=== PATIENT | male | born 1965 | race African-American/Black ===

== ENCOUNTER 2016-09-25 20:50 | Emergency (ER) | payer BC ==
[~2016-09-25] VITALS: Ht 188 cm; Wt 90.7 kg
[~2016-09-25 20:50] MED LIST: AMITRIPTYLINE H25 M2 PO; IBUPROFEN 800800 M1 PO; MEDROL4 MG PO; NEURONTIN 300300 M1 PO; NO HOME MEDS; NORCO 5-325 TA1 EACH PO; PERCOCET 5-3251 EACH PO; VALIUM5 MG PO
[2016-09-25 22:16] LABS: URINE BILIRUBIN 1+ (Negative); URINE BLOOD NEGATIVE (Negative); URINE COLOR YELLOW; URINE GLUCOSE-RANDOM* NEGATIVE (Negative); URINE KETONES TRACE (Negative); URINE LEUKOCYTES-REFLEX NEGATIVE (Negative); URINE PROTEIN (DIPSTICK) TRACE (Negative); URINE SPECIFIC GRAVITY 1.025 (1.003-1.035)
[2016-09-25 22:21] LABS: ICTOTEST (BILI CONFIRMATORY) Positive (Negative)
[2016-09-25] MEDS ORDERED: ULTRAM 50MG TAB50 MG PO (23:20)
[2016-09-25] MEDS ORDERED: VALIUM5 MG PO (23:20)
== END 2016-09-25 23:36 | disposition home or self-care (01) ==
LOC: ER 20:50
PROVIDERS: Emergency Medicine
DX: M54.6 Pain in thoracic spine (principal); Z91.041 Radiographic dye allergy status

== ENCOUNTER 2017-07-29 22:47 | Emergency (ER) | payer BC ==
[~2017-07-29] VITALS: Ht 188 cm; Wt 91.2 kg
--- NOTE | ~2017-07-29 | EKG ---
[address] [address] [place] [address] ELECTROCARDIOGRAM REPORT Name: HILARIOBIJAN Kaylyn Room #: [id number] Admission: 07/29/17 Attend Phys: Discharge: 07/30/17 Date of : 65 Report #: [id number] THIS REPORT FOR: //name// [facility] ED Test Date: 2017-07-29 Test Time: 23:17:11 Pat Name: BIJAN RICH Department: Room: Gender: Contract Specialist: MZOOK : 1965 Requested By: Noemy Tyson Order Number: [id number] MD: Sal Monterroso Measurements Intervals [place] Rate: 73 P: 51 OH: 155 QRS: 32 QRSD: 77 T: -7 QT: 372 QTc: 410 Interpretive Statements Sinus rhythm Abnormal R-wave progression, early transition Borderline T abnormalities, inferior leads Borderline ST elevation, anterior leads No previous ECG available for comparison Electronically Signed On 07-30-2017 10:19:27 CDT by Sal Monterroso [email or web address] <ELECTRONICALLY SIGNED> By: Sal Monterroso MD, [facility] 07/30/17 [id number] Sal Monterroso MD, FACC /EPI
[~2017-07-29 22:47] MED LIST changes: +ULTRAM 50MG TAB50 MG PO
[2017-07-30 00:05] LABS: ABSOLUTE NEUTROPHILS 5.7 thou/uL (1.4-8.2); BASOPHILS 0.7 % (0.0-2.0); EOSINOPHILS 1.8 % (0.0-3.0); HEMATOCRIT 42.2 % (42.0-52.0); HEMOGLOBIN 14.5 gm/dL (14.0-18.0); LYMPHOCYTES 19.4 % (24.0-44.0); MCH 33.4 pg (26.0-34.0); MCHC 34.4 g/dL (28.0-37.0); MCV 97.2 fL (80.0-100.0); MONOCYTES 7.8 % (1.0-8.0); PLATELET COUNT 207 thou/uL (150-400); POLYS 70.3 % (36.0-66.0); RBC 4.34 mil/uL (4.50-6.00); RDW 12.6 % (10.5-14.5)
[2017-07-30 00:08] LABS: ANION GAP 9 mmol/L (7-16); BUN 11 mg/dL (7-18); CALCIUM 9.1 mg/dL (8.5-10.1); CHLORIDE 105 mmol/L (98-107); CO2 27 mmol/L (21-32); CREATININE 1.1 mg/dL (0.7-1.3); GLUCOSE 107 mg/dL (74-106); POTASSIUM 3.8 mmol/L (3.5-5.1); SODIUM 141 mmol/L (136-145)
[2017-07-30 00:17] LABS: TROPONIN-I <0.06 ng/mL (<0.06)
[2017-07-30 01:29] LABS: URINE BILIRUBIN NEGATIVE (Negative); URINE BLOOD NEGATIVE (Negative); URINE CLARITY CLEAR; URINE COLOR YELLOW; URINE GLUCOSE-RANDOM* NEGATIVE (Negative); URINE KETONES NEGATIVE (Negative); URINE LEUKOCYTES-REFLEX NEGATIVE (Negative); URINE NITRITE-REFLEX NEGATIVE (Negative); URINE PROTEIN (DIPSTICK) NEGATIVE (Negative); URINE SPECIFIC GRAVITY 1.025 (1.005-1.035); URINE UROBILINOGEN 0.2 E.U./dl (0.2-1.0)
[2017-07-30] MEDS ORDERED: MOBIC15 MG PO (01:39)
== END 2017-07-30 01:59 | disposition home or self-care (01) ==
LOC: ER 22:47
PROVIDERS: Emergency Medicine
DX: R07.9 Chest pain, unspecified (principal); R06.02 Shortness of breath; Z91.041 Radiographic dye allergy status

== ENCOUNTER 2019-08-05 15:05 | Inpatient (IN) | payer BC ==
[~2019-08-05] VITALS: Ht 188 cm; Wt 88.0 kg
[~2019-08-05 15:05] MED LIST changes: +MOBIC15 MG PO
--- NOTE | 2019-08-05 17:30 | NUR ---
ADMITTED TO UNIT AT 1600. PT IS A/O. ADMITTED FOR PNEUMONIA. WAS ADMISSION FROM [facility]. ADMISSION DOCUMENTION COMPLETED. SCD'S AND FALL PRECAUTIONS ARE IN PLACE. EDUCATED JOB FORWARDER LIGHT AND IS WITHIN REACH. ABLE TO MAKE NEEDS KNOWN. C/O NECK PAIN. AWAITING PHYSCIAN ORDERS. WILL REPORT TO NURSE.
[2019-08-05 20:00] VITALS: BP 130/83
[2019-08-06 00:17] VITALS: BP 116/60
--- NOTE | 2019-08-06 04:00 | NUR ---
ASSUMED CARE OF PT AT 1900HRS. PT AOX4 AND LETS NEEDS BE KNOWN. PT IS UP AD JEREMIAH. PT HAD A TEMP THIS SHIFT. VP & GENERAL COUNSEL NOTIFIED. ABX TREATMENT STARTED. 2L 02 VIA MO CONTINUED. ASSESSMENT CHARTED. PT WAS ABLE TO GET COMFORTABLE AND SLEEP PART OF THE SHIFT. WILL CONTINUE TO MONITOR.
[2019-08-06 04:14] VITALS: BP 127/53
[2019-08-06 07:29] VITALS: BP 125/77
[2019-08-06 08:25] LABS: HEMATOCRIT 36.3 % (42.0-52.0); HEMOGLOBIN 12.8 gm/dL (14.0-18.0); MCHC 35.4 g/dL (28.0-37.0); RBC 3.66 mil/uL (4.50-6.00); RDW 13.2 % (10.5-14.5); WBC 17.1 thou/uL (4.0-11.0)
[2019-08-06 08:39] LABS: CREATININE 1.3 mg/dL (0.7-1.3); MAGNESIUM 1.5 mg/dL (1.8-2.4)
--- NOTE | 2019-08-06 11:26 | NUR ---
RD consulted to go over food preferences with pt. Pt is strict vegan. Placed preferences in computer, and pt capable and encouraged to order own meals.
--- NOTE | 2019-08-06 11:57 | NUR ---
Received awake on bed. Due medications given as prescribed, able to swallow meds w/o difficulty. On O2 at 1lpm via nasal cannula, pt does not use oxygen at home. On heart healthy diet- tolerating well; no nausea, no vomiting and no abdominal pain noted; cold patcher consult placed for pt's preference and restrictions- pt seen and examined by cold patcher today. Continent of bowel and bladder- able to go to the bathroom independently. Up ad kevyn. With NS at 125cc/hr, infusing well at L wrist, pt's IV accidentally pulled out when he tried to go to the toilet, re-sited at [facility]; on IV antibiotics. Pt with temperature of 102- PRN tylenol given as prescribed, pt initially tried to refuse taking tylenol, explained the need to take it to lower his temperature; Dr Sanders informed as well. To continue monitoring patient.
--- NOTE | 2019-08-06 15:12 | NUR ---
PT ADMITTED RELATED TO PNEUMONIA. CM REVIEWED CHART AND SPOKE WITH CARE TEAM. CM CALLED AND SPOKE WITH PT AT BEDSIDE THIS DAY. PT APPEARED TO BE A&O X4. CM ROLE INTRODUCED. PT INDICATED HE LIVES IN A TOWNHOUSE WITH HIS SPOSE AND CHILD. HE INDICATED THERE ARE NO STEPS TO ENTER AND A FULL FLIGHT TO BEDROOMS INSIDE. 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 PT INDICATED NO HH OR OP THERAPY HX. PT INDICATED NO DME OR RESP EQUIPTMENT BIOLOGY LABORATORY ASSISTANT. PT INDICATED HE PLANS TO RETURN HOME ONCE MEDICALLY STABLE. CM TO FOLLOW INDICATED WITH DC PLANNING.
[2019-08-06 15:25] VITALS: BP 119/80
[2019-08-06 19:24] VITALS: BP 124/73
[2019-08-07 05:20] VITALS: BP 139/76
--- NOTE | 2019-08-07 06:37 | NUR ---
ASSUMED CARE OF PT AT 1900HRS. PT AOX4 AND UP AD JEREMIAH. PT REPORTED SOME PAIN ADN WAS TREATED WITH PRN MEDS. PT WAS AFEBRILE THIS SHIFT. PT SENIED PAIN, NAUSEA OR SOA. ABX TREATMENT CONTINUED. PT WAS ABLE TO GET COMFORTABLE AND SLEEP PART OF THE SHIFT. VSS AND NO S/S OF ACUTE DISTRESS. WILL CONTINUE TO MONITOR.
[2019-08-07 07:30] VITALS: BP 134/83
--- NOTE | 2019-08-07 14:49 | NUR ---
ASSUMED CARES AT 0700. PT AWAKE, ALERT AND ORIENTED*4. DENIES PAIN. VITALS REMAIN STABLE. PT C/O NAUSEA, HAD HEAVES AFTER SHOWER BUT NO EMESIS, TEMP CHECKED AT THIS TIME 100.3, RECHECKED 10 MINUTES AFTER THE HEAVES HAD SUBSIDED 98.3. PT UNABLE TO EAT HIS LUNCH, STATED THAT IT MADE HIM NAUSEOUS. PT REMAINS AD JEREMIAH IN THE ROOM AND TOLERATES WELL. IV ON RIGHT WRIST REMAINS INTACT AND PATENT, IV ANTIBIOTICS ADMINISTERED SCHEDULED. Q1H VISUAL CHECKS. CALL LIGHT WITHIN REACH. FALL PRECAUTIONS IN PLACE
[2019-08-07 15:25] VITALS: BP 126/83
[2019-08-07 20:02] VITALS: BP 132/76
--- NOTE | 2019-08-08 03:45 | NUR ---
PATIENT AOX4 MAKES NEEDS KNOWN. PATIENT ENCOURAGED TO COUGH AND TAKE DEEP BREATHS. PATIENT HAD A NON PRODUCTIVE COUGH THIS SHIFT.NO SOA NOTED WITH ACTIVITIES. PATIENT C/O PAIN WHEN WALKING TO THE BATHROOM OR COUGHING. PATIENT RREFUSED SOME HS MEDS. PAIN CONTROLLED THIS SHIFT.PATIENT IN BED ASLEEP AT THIS TIME BREATHING REGULAR AND UNLABOURED.
[2019-08-08 08:15] VITALS: BP 135/88
[2019-08-08] MEDS ORDERED: MAGOX 400400 MG PO ×2 (14:46→16:55)
[2019-08-08] MEDS ORDERED: ALBUTEROL2.5 MG/0.5 INH ×2 (14:46→16:55)
[2019-08-08] MEDS ORDERED: MIRALAX17 GM PO (14:46)
[2019-08-08] MEDS ORDERED: AZITHROMYCIN250 MG PO ×2 (14:51→16:55)
[2019-08-08] MEDS ORDERED: CEFDINIR300 MG PO ×2 (14:51→16:55)
[2019-08-08 14:52] VITALS: BP 114/77
--- NOTE | 2019-08-08 16:34 | 2DMMODE ---
[facility] [place] [address] 2 D/M-MODE ECHOCARDIOGRAM Name: BIJAN RICH Room #: 455-P ADM IN M.R.#: [id number] Admission: 08/05/19 Attend Phys: Lou Campuzano Discharge: Date of : 65 Report #: [id number] THIS REPORT FOR: cc: FAM - Family physician unknown FAM - Family physician unknown Sal Monterroso MD [facility] ~ APPROVED REPORT Study performed: 08/08/2019 14:30:16 EXAM: Comprehensive 2D, Doppler, and color-flow Echocardiogram Patient Location: Bedside Room #: [facility] Status: routine BSA: 2.15 HR: 96 bpm BP: 135/88 mmHg Rhythm: NSR Other Information Study Quality: Good Indications Dyspnea 2D Dimensions RVDd: 39.81 mm IVSd: 9.22 (7-11mm) LVOT Diam: 22.55 (18-24mm) LVDd: 53.38 mm PWd: 8.78 (7-11mm) Ascending Ao: 36.03 (22-36mm) LVDs: 36.14 (25-40mm) Aortic Root: 36.50 mm IVC: 11.00 mm Volumes Left Atrial Volume (Systole) Single Plane 4CH: 39.33 mL Single Plane 2CH: 43.21 mL LA ESV Index: 23.00 mL/m2 Aortic Valve AoV Peak Carlos.: 1.21 m/s AO Peak Gr.: 5.86 mmHg LVOT Max P.11 mmHg LVOT Max V: 1.13 m/s MERCEDES Vmax: 3.73 cm2 [facility] [address] [place] [address] 2 D/M-MODE ECHOCARDIOGRAM Name: RICHBIJAN Kaylyn Room #: 455-P [facility] IN .R.#: [id number] Admission: 08/05/19 Attend Phys: Lou Spicer Discharge: Date of : 65 Report #: [id number] Mitral Valve E/A Ratio: 1.1 MV Decel. Time: 226.35 ms MV E Max Carlos.: 0.75 m/s MV A Carlos.: 0.71 m/s MV PHT: 65.64 ms IVRT: 101.50 ms Pulmonary Valve PV Peak Carlos.: 0.99 m/s PV Peak Gr.: 3.95 mmHg Pulmonary Vein P Vein S: 0.80 m/s P Vein A: 0.26 m/s P Vein D: 0.53 m/s P Vein A Dur.: 106.1 msec P Vein S/D Ratio: 1.51 Left Ventricle The left ventricle is normal size. There is normal LV segmental wall motion. There is normal left ventricular wall thickness. Left ventricular systolic function is normal. The left ventricular ejection fraction is within the normal range. LVEF is 55-60%. The left ventricular diastolic function is normal. Right Ventricle The right ventricle is normal size. The right ventricular systolic function is normal. Atria The left atrium size is normal. The right atrium size is normal. Aortic Valve The aortic valve is normal in structure. No aortic regurgitation is present. There is no aortic valvular stenosis. Mitral Valve The mitral valve is normal in structure. There is no mitral valve regurgitation noted. No evidence of mitral valve stenosis. Tricuspid Valve The tricuspid valve is normal in structure. There is no tricuspid valve regurgitation noted. Pulmonic Valve The pulmonary valve is normal in structure. There is no pulmonic valvular regurgitation. [facility] [place] [address] 2 D/M-MODE ECHOCARDIOGRAM Name: HILARIOBIJAN Kaylyn Room #: 455-P [facility] IN M.R.#: [id number] Admission: 08/05/19 Attend Phys: Lou Spicer Discharge: Date of : 65 Report #: [id number] Great Vessels The aortic root is normal in size. IVC is normal in size and collapses >50% with inspiration. Pericardium There is no pericardial effusion. <Conclusion> Left ventricular systolic function is normal. There is normal LV segmental wall motion. LVEF is 55-60%. Normal diastolic function The aortic valve is normal in structure. No aortic regurgitation or stenosis The mitral valve is normal in structure. No mitral valve regurgitation Pulmonary artery systolic pressure could not be reliably ascertained There is no pericardial effusion. <ELECTRONICALLY SIGNED> By: Sal Monterroso MD, [facility] 08/08/19 [id number] Sal Monterroso MD, [facility] /INF
--- NOTE | 2019-08-08 17:26 | NUR ---
ASSUMED CARE AROUND 0700, PT A&O X 4, NO ACUTE CHANGES NOTED. VSS NO TEMP (97.9), O2 ON RA WITH KIMBERLY RESP TX. PT DENIED ANY PAIN OR DISCOMFORT. IV TO RW ON ABX AND RECEIVED IV K+ 2O MEQ (IOOML) X 2 AND PO 60 MEQ FOR K+ 2.6. CRITICAL LAB RECEIVED AT 1355, NOTIFIED AT 1400. K+ LAB RECHECKED AT 1730 AWAITING RESULTS. ECHO COMPLETED TODAY, BG ACHS. POSS D/C TODAY, RESTING IN BED, CALL LIGHT WITHIN REACH, WILL CONTINUE TO MONITOR PER POC.
[2019-08-08 17:52] VITALS: BP 114/77
--- NOTE | 2019-08-08 19:33 | NUR ---
PATIENT DISCHARGED AROUND 184, DISCHARGE EDUCATION AND INSTRUCTIONS GIVEN, PT VOICED UNDERSTANDING. MEDICATIONS SENT TO PHARMACY, IV TO RW D/C'D. PT LEFT UNIT AROUND 1854 TO ER EXIT WHERE HE WAS PICKED UP BY FAMILY.
== END 2019-08-08 18:55 | disposition home or self-care (01) | DRG 871 ==
LOC: 4W 15:05
PROVIDERS: Nurse Practitioner Family; ADMIT Hospitalist; ATTEND Hospitalist
DX: A41.9 Sepsis, unspecified organism (principal); J18.9 Pneumonia, unspecified organism; E87.2 Acidosis; N17.9 Acute kidney failure, unspecified; E87.6 Hypokalemia; Z91.041 Radiographic dye allergy status
CPT/HCPCS: 10047